=== PATIENT | male | born 1985 | race Caucasian/White ===

== ENCOUNTER → 2021-11-13 11:09 | Outpatient (BNVA) | payer MEDICARE, MEDICAID, SELFPAY | PROVIDERS: Family Provider Nurse Practitioner Family; Visit Provider Nurse Practitioner Family | DX: R05.9 Cough, unspecified (principal) | CPT/HCPCS: 87400; 87635 ==

== ENCOUNTER 2022-01-27 13:52 | Emergency (ER) | payer MEDICARE, MEDICAID, SELFPAY ==
[2022-01-27 13:59] VITALS: BP 138/59; PULSE 102; RESP 19; TEMP 36.7; O2SAT 96; BMI 29.6
--- NOTE | 2022-01-27 14:09 | ED_ITS ---
HPI - General Adult General: Chief complaint: Seizure Stated complaint: SEIZURE Time Seen by Provider: 01/27/22 14:01 History of Present Illness: HPI: [36]yo patient w/ hx of epilespy not on medication presenting from [facility] the ED with breakthrough episode of the seizure which occurred 1 hr ago. The incident was witnessed entirely patient's peers and facility staff. Patient had a general tonic-clonic seizing and patient was reported to be hitting his head against the ground. HDS without any signs of focal neurological deficits. On arrival, the patient is AAOx3, GCS of 15 and answering all questions. The patient denies any associated chest pain, shortness of breath, palpitations, or any focal pain in the arms and legs. Lpatient thinks the current episode is due to significant stress at [facility]. Onset: 1 hr ago Duration: x1 episode lasting for 1 minute Location: [facility] Severity: moderate Associated symptoms: Deny chest pain, dyspnea, nausea, rash, palpitations or vomiting Review of Systems Const: Denies: fever(s) or chills Eyes: Denies: change in vision ENMT: Denies: mouth pain Card: Denies: chest pain or palpitations Resp: Denies: dyspnea or non-productive cough GI: Denies: abdominal pain, nausea, vomiting or diarrhea : Denies: dysuria Musc: Denies: extremity pain Skin/Breast: Denies: rash or new lesions Neuro: Reports: other (+seiuzure); Denies: weakness in extremities Psych: Reports: other (Normal mood) Hiren/Lymph: Denies: easy bruising PFS ED PFSH: Medical History 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 Colon polyps Legg-Perthes disease Right hip Lower respiratory infection Surgical History S/P hip replacement Legg-Perthes Disease Social History Smoking and tobacco status: current every day smoker Second hand smoke exposure: No Smoking risk assessment/counseling performed?: No Alcohol intake: never Desire information about alcohol rehabilitation?: No Counseling given: No Physical Exam Const: COMMON NORMALS: alert HENMT: COMMON NORMALS: atraumatic HEAD & SCALP: atraumatic MOUTH: moist mucous membranes not abnormal Eye: COMMON NORMALS: EOMs intact bilaterally and conjunctivae normal CONJUNCTIVA: Yes conjunctivae normal Neck/C-Spine: COMMON NORMALS: full ROM and supple Resp: COMMON NORMALS: normal respiratory effort and clear to auscultation bilaterally AUSCULTATION: clear to auscultation bilaterally Cardio: COMMON NORMALS: regular rate RATE: regular rate GI: COMMON NORMALS: Soft to palpation and non-tender PALPATION: Yes Soft to palpation Extremity: COMMON NORMALS: full ROM Neuro: SENSORIUM/ORIENTATION: Yes alert MOTOR EXAM: No Abnormal motor strength present and Other motor observations present (no focal motor deficits) OTHER: Mental status? Awake, alert, and oriented to self, year, month, location, and situation.? Following simple axial and appendicular commands.? Has appropriate fund of knowledge, comprehension, and insight.? Able to recall and understands pertinent aspects of medical history and current treatment status.? ? Language? Speech is fluent without word-finding difficulties.? Intact naming, expression, medical records receptionist, and repetition.? ? Cranial nerves? 2,3,4,6: PERRL, EOMI with no nystagmus. 5: Intact sensation to light touch, symmetric? 7: Smile symmetrical, no facial droop.? 8: Hearing grossly intact.? 9,10: Normal palate movement.? 11: Normal strength in trapezius bilaterally 12: Tongue protrudes midline.? ? Motor examination? Normal bulk & tone. Strength as follows (R/L): Delts (5/5), Biceps (5/5), Triceps (5/5), Wrist ext (5/5), hip flexors (5/5), plantarflexors (5/5), dorsiflexors (5/5). Sensation? Light Touch: Grossly intact and equal in upper and lower extremities bilaterally? Romberg: Negative.? Distal joint position sense intact ? Coordination? Atkraj-vu-quux-finger movements intact without dysmetria or past-pointing.? Rapid fingertaps: preserved amplitude without decriment.? No tremor, myoclonus or truncal ataxia.? ? Gait/stance? Steady, normal narrow base gait with appropriate arm swing and turning.? Tandem gait without hesitation or loss of balance. Psych: COMMON NORMALS: speech normal SPEECH: Yes normal speech MOOD & AFFECT: Yes euthymic mood Course Vital Signs: Vital signs: Vital Signs Temperature 98.1 F 01/27/22 13:59 Pulse Rate 93 01/27/22 16:20 Respiratory Rate 23 H 01/27/22 15:54 Blood Pressure 127/54 01/27/22 16:20 Pulse Oximetry 95 01/27/22 16:20 MDM - General Adult Medical Decision Making [36]yo patient w/ known hx of seizure not on meds BIBA after an episode of seizure with unknown duration which occurred 1 hr ago. Back to baseline on arrival, AAOX3 with non-focal neuro exam. HDS. Exam revealed no focal trauma/deformity/bruises.The episode of seizure was witnessed and without any trauma/injury to the head. No immunosuppression hx and without preceding fever. No history of alcohol abuse or suspicion for toxin ingestion. Hx of prior seizure likely breakthrough seizure in the setting of medication change/non- compliance. H No lips/tongue lacerations. No visible bowel/bladder incontinence Airway protected. No drooling. Sats > 95%. Unlikely to be stroke, neurogenic syncope, acute delirium, intracranial tumor/mass, intracranial bleed, SAH/ subdural hematoma/epidural hematoma, meningitis, or intracranial abscess, or from alcohol withdraw al. Workup: CBC, BMP, Magnesium, EKG, CT brain (given fall) ED Interventions: 1g of keppra, PO challenge, serial reassessment EKG: No e/o STEMI. No evidence of Brugada?s sign, delta wave, epsilon wave, significantly prolonged QTc, or malignant arrhythmia. Lab findings: Electrolytes including K and Mg wnl. [4:00pm] On reassessment, patient back to baseline. In the ED, the patient received 1g of keppra in the ED. Hr improved after IVF. No other witnessed episodes of seizure while the patient was observed in the ED. Repeat neuro exam is non-focal. CT head negative for any acute findings. Patient is not medication and will be started on keppra Patient tolerated PO in the ED and was able to ambulate without difficulties. Unlikely to be alternative causes of seizures since the patient has no hx of immunosuppression, no recent fevers, no recent abx/SENIOR ACCOUNTS PAYABLE CLERK shunt, no recent toxic exposure, no unilateral or focal weakness, or trauma. I have given patient follow up with our field nurse case manager to be seen by our outpatient Neurology for management of seizures. Patient aware of a call from our field nurse case manager to schedule for appointment(s) and verbalizes understanding of the importance of following up. Rx: keppra 500mg BID x 14 days Disposition: Discharge. Patient is given instruction for follow-up with PCP and Neurology in the next 24-48 hours. Given seizure precautions including no driving, swimming, or bathing until the patient is fully evaluated by specialists. Lab Data : 01/27/22 14:51 01/27/22 14:[address] 01/27/22 14:07 IMPRESSION: No acute intracranial abnormality. Laboratory Results WBC 5.8 10^3/uL (4.0-10.0) 01/27/22 14:51 RBC 4.23 10^6/uL (4.1-5.3) 01/27/22 14:51 Hgb 12.6 g/dL (11.7-16.6) 01/27/22 14:51 Hct 39.0 % (42.0-52.0) L 01/27/22 14:51 MCV 92.2 fl (80-94) 01/27/22 14:51 MCH 29.8 pg (28.0-34.0) 01/27/22 14:51 MCHC 32.3 g/dL (30.0-36.0) 01/27/22 14:51 RDW 13.8 % (12.1-15.1) 01/27/22 14:51 Plt Count 280 10^3/cmm (130-400) 01/27/22 14:51 MPV 10.7 fL (7.4-10.4) H 01/27/22 14:51 Neut % (Auto) 49.5 % 01/27/22 14:51 Lymph % (Auto) 30.2 % 01/27/22 14:51 [place] % (Auto) 15.3 % 01/27/22 14:51 Eos % (Auto) 3.8 % 01/27/22 14:51 Baso % (Auto) 1.0 % 01/27/22 14:51 Neut # (Auto) 2.88 10^3/uL (1.8-7.7) 01/27/22 14:51 Lymph # (Auto) 1.8 10^3/uL (0.8-4.8) 01/27/22 14:51 [place] # (Auto) 0.9 10^3/uL (0.2-0.9) 01/27/22 14:51 Eos # (Auto) 0.2 10^3/uL (0.0-0.8) 01/27/22 14:51 Baso # (Auto) 0.1 10^3/uL (0.0-0.1) 01/27/22 14:51 Nucleated RBC % (auto) 0 % 01/27/22 14:51 Nucleated RBCs # 0.0 /100WBC 01/27/22 14:51 Sodium 139 mmol/L (136-145) 01/27/22 14:51 Potassium 4.7 mmol/L (3.5-5.1) 01/27/22 14:51 Chloride 102 mmol/L (98-107) 01/27/22 14:51 Carbon Dioxide 27 mmol/L (22-29) 01/27/22 14:51 Anion Gap 14.7 (5-19) 01/27/22 14:51 BUN 13 mg/dL (6-20) 01/27/22 14:51 Creatinine 0.9 mg/dL (0.7-1.2) 01/27/22 14:51 GFR Calculation 96.6 mL/min (90-130) 01/27/22 14:51 Glucose 107 mg/dL (65-115) 01/27/22 14:51 Calculated Osmolality 289 mOsm/kg (285-295) 01/27/22 14:51 Calcium 8.4 mg/dL (8.5-10.5) L 01/27/22 14:51 Total Bilirubin 0.2 mg/dL (0.15-1.2) 01/27/22 14:51 AST 43 U/L (0-40) H 01/27/22 14:51 ALT 91 U/L (0-41) H 01/27/22 14:51 Alkaline Phosphatase 88 IU/L (40-130) 01/27/22 14:51 Total Protein 6.4 g/dL (6.6-8.7) L 01/27/22 14:51 Albumin 4.0 g/dL (3.5-5.2) 01/27/22 14:51 Globulin 2.4 g/dL (1.3-4.6) 01/27/22 14:51 Lipase 21 U/L (13-60) 01/27/22 14:51 Urine Color Straw (Yellow) 01/27/22 14:51 Urine Appearance Clear (CLEAR) 01/27/22 14:51 Urine pH 7 (5-7) 01/27/22 14:51 Ur Specific Stacy 1.015 (1.005-1.030) 01/27/22 14:51 Urine Protein Neg (Negative) 01/27/22 14:51 Urine Glucose (UA) Norm (Normal) 01/27/22 14:51 Urine Ketones Negative (Negative) 01/27/22 14:51 Urine Blood Neg (Negative) 01/27/22 14:51 Urine Nitrate Negative (Negative) 01/27/22 14:51 Urine Bilirubin Neg (Negative) 01/27/22 14:51 Urine Urobilinogen Norm mg/dL (Negative) 01/27/22 14:51 Ur Leukocyte Esterase Negative (Negative) 01/27/22 14:51 Imaging Data Other Imaging: Radiologist's impression: [id number] [address] [address] Scan Report Signed Patient: Yamil Gonzalez Unit #: [id number] : 1985 Age/Sex: 36 / M ADM Date: 01/27/22 Loc: ER Room/Bed: Attending Dr: Ordering Provider/Ordering MD: Henrietta Godfrey MD Date of Service: 01/27/22 Procedure(s): CT head wo con* [id number] Accession Number(s): [id number] Report Number: [id number] PROCEDURE INFORMATION: Exam: CT Head Without Contrast Exam date and time: 01/27/2022 2:31 PM Age: 36 years old Clinical indication: Other: Seizure; Additional info: Fall TECHNIQUE: Imaging protocol: Computed tomography of the head without contrast. Radiation optimization: All CT scans at this facility use at least one of these dose optimization techniques: automated exposure control; mA and/or kV adjustment per patient size (includes targeted exams where dose is matched to clinical indication); or iterative reconstruction. COMPARISON: No relevant prior studies available. RADIATION DOSE METRICS: Total DLP (mGy-cm): 889.42 FINDINGS: Brain: Normal. No hemorrhage. No edema. Unremarkable white matter. No mass effect. Cerebral ventricles: No ventriculomegaly. Paranasal sinuses: Visualized sinuses are unremarkable. No fluid levels. Mastoid air cells: Visualized mastoid air cells are well aerated. Bones/joints: Unremarkable. No acute fracture. Soft tissues: Unremarkable. CT/CT head wo con* [id number] IMPRESSION: No acute intracranial abnormality. ? Dictated By: Garry Ernst DO Signed By: Garry Ernst DO Signed Date/Time: 01/27/22 1513 DD/ 1431 Discharge Plan Discharge Patient Disposition: Home Clinical Impression: Seizure Condition: Stable Prescriptions: New Keppra 500 mg tablet 500 mg PO BID 14 Days Qty: 28 0RF No Action oxycodone-acetaminophen [Percocet] 5-325 mg tablet 1 tab PO Q6H PRN0RF ibuprofen 800 mg tablet 800 mg PO Q8H PRN (Reason: pain) 30 Days Qty: 90 0RF sulfamethoxazole-trimethoprim [Bactrim DS] 800-160 mg tablet 1 tab PO DAILY 14 Days Qty: 28 0RF hydrocortisone [Anti-Itch (HC)] 1 % cream 1 applic TOPICAL TID PRN (Reason: itching) Qty: 14.2 0RF famotidine [Pepcid] 40 mg tablet 40 mg PO DAILY Qty: 30 2RF doxycycline monohydrate 100 mg tablet 100 mg PO BID 10 Days Qty: 20 0RF dexamethasone 6 mg tablet 6 mg PO DAILY 7 Days Qty: 7 0RF Discharge Orders: Discharge ED (Routine); Ordered 01/27/22 Ordered By: Henrietta Godfrey Referrals: Asa Fuentes FNP [Emergency Department] - Discharge Diet: Advance as tolerated Discharge Activity: Increase activity as tolerated Patient Instructions: Epilepsy (ED) Activity Restrictions/Additional Instructions: Our field nurse case manager will have you follow-up with a neurologist in the next few days. You would be expected to have a phone call with our field nurse case manager who will put you on the schedule. You can expect a call from us in the next 2-3 days. If you don't hear from us, call us back in the emergency room at [phone]. Please come back to the emergency room for any more breakthrough episodes of seizure. Come back if any weakness in her arms, drooling, difficulty speaking, any neurological symptoms. Please do not swim bathe or drive a vehicle u nattended. Coding Level of Care Code ED Waste Elimination for Robert Fwd Exam Comprehensive
[2022-01-27] MEDS: acetaminophen 500 mg Tablet PO (14:23)
[2022-01-27] MEDS: sodium chloride 0.9% 1,000 ML 999 ML IV (14:39)
[2022-01-27 15:16] LABS: Basophils # 0.1 10^3/uL (0.0-0.1); Eosinophils # 0.2 10^3/uL (0.0-0.8); Eosinophils % 3.8 %; Hemoglobin 12.6 g/dL (11.7-16.6); Lymphocytes # 1.8 10^3/uL (0.8-4.8); Lymphocytes % 30.2 %; Mean Corpuscular HGB Conc 32.3 g/dL (30.0-36.0); Mean Corpuscular Hemoglobin 29.8 pg (28.0-34.0); Mean Corpuscular Volume 92.2 fl (80-94); Mean Platelet Volume 10.7 fL (7.4-10.4); Monocytes # 0.9 10^3/uL (0.2-0.9); Monocytes % 15.3 %; Neutrophils # 2.88 10^3/uL (1.8-7.7); Neutrophils % 49.5 %; Nucleated Red Blood Cells % 0 %; Platelet Count 280 10^3/cmm (130-400); Red Blood Count 4.23 10^6/uL (4.1-5.3); Red Cell Distribution Width 13.8 % (12.1-15.1); White Blood Count 5.8 10^3/uL (4.0-10.0)
[2022-01-27 15:18] LABS: Add Urine Microscopic? NO; Charge for UA Resulting for Rev
[2022-01-27 15:25] LABS: Bilirubin Urine Neg (Negative); Blood Urine Neg (Negative); Glucose Urine UA Norm (Normal); Ketones Urine Negative (Negative); Leukocyte Esterase Urine Negative (Negative); Nitrate Urine Negative (Negative); Protein Urine Neg (Negative); Specific Gravity, Urine 1.015 (1.005-1.030); Urine Appearance Clear (CLEAR); Urine Color Straw (Yellow); Urobilinogen Urine Norm (Negative); pH Urine 7 (5-7)
[2022-01-27 15:30] LABS: Alanine Aminotransferase 91 U/L (0-41); Alkaline Phosphatase 88 IU/L (40-130); Anion Gap 14.7 (5-19); Aspartate Amino Transferase 43 U/L (0-40); Blood Urea Nitrogen 13 mg/dL (6-20); Calcium 8.4 mg/dL (8.5-10.5); Carbon Dioxide 27 mmol/L (22-29); Chloride 102 mmol/L (98-107); Globulin 2.4 g/dL (1.3-4.6); Glomerular Filtration Rate 96.6 mL/min (90-130); Glucose 107 mg/dL (65-115); Lipase 21 U/L (13-60); Osmolality Calculated 289 mOsm/kg (285-295); Potassium 4.7 mmol/L (3.5-5.1); Sodium 139 mmol/L (136-145); Total Bilirubin 0.2 mg/dL (0.15-1.2); Total Protein 6.4 g/dL (6.6-8.7)
[2022-01-27 15:54] VITALS: BP 138/59; PULSE 96; RESP 23
[2022-01-27 16:20] VITALS: BP 127/54; PULSE 93; O2SAT 95
--- NOTE | 2022-01-29 12:09 | DCPLANNER ---
Addendum entered by Tessy Bailey 02/21/22 20:26: Patient had a follow up appointment scheduled with Dr. Lainez - patient did attend appointment. Addendum entered by eTssy Bailey 02/01/22 08:10: Patient has a follow up appointment scheduled for Saturday, February 05, 2022 at 1:[address] Lainez at neurology. Clinic will call patient with appointment information. Original Note: it disaster recovery manager had message to schedule a followup appointment for patient with neurology. it disaster recovery manager sent patients information to the front office staff at neurology. Patients information will be printed and reviewed. Clinic will call patient with appointment information.
== END 2022-01-27 16:22 | disposition home or self-care (01) ==
PROVIDERS: Emergency Provider Emergency Medicine
DX: R56.9 Unspecified convulsions (principal); F17.200 Nicotine dependence, unspecified, uncomplicated; Z79.899 Other long term (current) drug therapy; Z79.891 Long term (current) use of opiate analgesic
CPT/HCPCS: 70450; 80053; 81003; 83690; 85025; 96361; 96374; 99284; J1953; J7030

== ENCOUNTER → 2022-02-05 13:32 | Outpatient (BNVA) | payer MEDICARE, MEDICAID, SELFPAY | PROVIDERS: Visit Provider Specialist | DX: R56.9 Unspecified convulsions (principal); R51.9 Headache, unspecified; F31.9 Bipolar disorder, unspecified | CPT/HCPCS: 99205 ==

== ENCOUNTER → 2022-02-21 13:31 | Outpatient (BNVA) | payer MEDICARE, MEDICAID, SELFPAY | PROVIDERS: Visit Provider Family Medicine | DX: M91.10 Juvenile osteochondrosis of head of femur [Legg-Calve-Perthes], unspecified leg (principal); Z96.649 Presence of unspecified artificial hip joint; M25.562 Pain in left knee; K21.9 Gastro-esophageal reflux disease without esophagitis; G89.29 Other chronic pain; F32.9 Major depressive disorder, single episode, unspecified | CPT/HCPCS: 80053; 85025; 86803; 87806 ==

== ENCOUNTER → 2023-11-28 08:37 | Outpatient (BNVA) | payer MEDICARE, MEDICAID, SELFPAY | PROVIDERS: PCP Registered Nurse; Visit Provider Registered Nurse | DX: J06.9 Acute upper respiratory infection, unspecified (principal); J01.90 Acute sinusitis, unspecified | CPT/HCPCS: 87400; 87426 ==

== ENCOUNTER → 2023-12-05 16:43 | Outpatient (BNVA) | payer MEDICARE, MEDICAID, SELFPAY | PROVIDERS: PCP Registered Nurse; Visit Provider Registered Nurse | DX: K21.9 Gastro-esophageal reflux disease without esophagitis (principal); R53.83 Other fatigue | CPT/HCPCS: 80053; 84443; 85025 ==

== ENCOUNTER → 2024-04-08 08:56 | Outpatient (BNVA) | payer OTHER, MEDICAID, SELFPAY | PROVIDERS: PCP Registered Nurse; Visit Provider Registered Nurse | DX: E66.01 Morbid (severe) obesity due to excess calories (principal); Z68.43 Body mass index [BMI] 50.0-59.9, adult | CPT/HCPCS: 83036 ==

== ENCOUNTER 2024-08-05 11:55 | Day surgery (SDC) | payer MEDICARE, MEDICAID, SELFPAY ==
[2024-08-05 12:20] VITALS: BP 146/86; PULSE 73; RESP 18; TEMP 36.9; O2SAT 93
[2024-08-05 12:21] VITALS: BMI 52.8
[2024-08-05] MEDS: sodium chloride 0.9% 1,000 ML 30 ML IV (12:43)
--- NOTE | 2024-08-05 12:57 | ANES.PREANE2 ---
Pre-Anesthetic Assessment Height/Weight: Height 1.75 m Weight 162.386 kg Temp Pulse Resp BP Pulse Ox O2 Del Method 98.5 F 73 18 146/86 93 Room Air 08/05/24 12:20 08/05/24 12:20 08/05/24 12:20 08/05/24 12:20 08/05/24 12:20 08/05/24 12:20 Operation Date: 08/05/24 13:15 Proposed Procedures p EGD 59701, 63468, G0105,K92.2, K21.9(Not Applicable) - DO fazal Dodd Colonoscopy(Not Applicable) - Dane Carter DO Familial anesthetic complications: None Was Beta Miley taken within 24 hours: N/A Was Clonidine taken within 24 hours: N/A Last intake: Intake Last Liquid Date 08/05/24 Last Liquid Time 09:00 Last Solid Date 08/03/24 Last Solid Time 23:00 Social No alcohol and No tobacco Exam alert, oriented x 3, clear to auscultation bilaterally and regular rate & rhythm Airway Mallampati: Class III Dentition: other (permanent caps) GI Gastroesophageal Reflux Disease Metabolic Morbid Obesity Anesthetic Plan ASA status: 3 Anesthesia: MAC Risk of > 500 ml blood loss (7ml/kg in children): No Medications/Allergies Home Medications Medication Instructions Recorded Confirmed Last Taken Type ondansetron 8 mg disintegrating 8 mg PO Q8H PRN nausea and 08/03/24 08/05/24 08/04/24 Rx tablet vomiting #20 tabs pantoprazole 40 mg tablet,delayed 40 mg PO BID 6 weeks #84 tabs 08/03/24 08/05/24 08/05/24 Rx release albuterol sulfate 90 mcg/actuation 1 inh inhalation Q4H PRN Shortness 08/04/24 08/05/24 08/05/24 History breath activated powder Of Breath Or Wheezing inhaler,sensor (Proair Digihaler) ibuprofen 800 mg tablet 800 mg PO Q8H PRN Pain 08/04/24 08/05/24 08/05/24 History polyethylene glycol 3350 17 gram 17 g PO DAILY 08/04/24 08/05/24 08/04/24 History oral powder packet (Miralax) Allergies Allergy/AdvReac Type Severity Reaction Status Date / Time phenazopyridine Allergy Intermediate sick Verified 08/05/24 12:19 [From Pyridium] Current Medications Generic Name Dose Route Start Last Admin Trade Name Freq PRN Reason Stop Dose Admin Sodium Chloride 1,000 mls @ 30 mls/hr 08/05/24 12:15 08/05/24 12:43 Sodium Chloride 0.9% IV 08/06/24 12:14 30 mls/hr .Q24H KIP Administration PFSH Anesthesia Medical History Legg-Perthes disease Right hip Lower respiratory infection Colon polyps 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
--- NOTE | 2024-08-05 13:17 | W.PM.OPSUD ---
Surgery/Procedure H&P Update DATE OF PROCEDURE: August 05, 2024 DATE H&P PERFORMED: 08/03/24 H&P UPDATE INFORMATION: I have reviewed H&P completed within last 30 days, I have examined patient prior to procedure and No changes to prior documentation PLANNED PROCEDURE: Operation Date: 08/05/24 13:15 Proposed Procedures p EGD 38445, 55928, G0105,K92.2, K21.9(Not Applicable) - DO fazal Dodd Colonoscopy(Not Applicable) - Dane Carter DO
[2024-08-05 13:44] VITALS: BP 94/53; PULSE 81; RESP 16; TEMP 36.4; O2SAT 93
[2024-08-05 13:49] VITALS: BP 93/44; PULSE 78; RESP 18; O2SAT 93
[2024-08-05 13:59] VITALS: BP 113/65; PULSE 74; RESP 18; O2SAT 93
[2024-08-05 14:18] VITALS: RESP 18; O2SAT 90
--- NOTE | 2024-08-05 14:30 | ANE.PACU2 ---
Inpatient post-anesthesia follow up: Airway intact: Yes Vital signs: Temperature 97.5 F Pulse Rate 74 Respiratory Rate 18 Blood Pressure 113/65 Pulse Oximetry 90 Oxygen Delivery Me thod Room Air Oxygen Flow Rate 4 Fraction of Inspir ed Oxygen Hydration adequate: Yes Nausea and vomiting: No Pain level: 1 Mental status: Baseline
== END 2024-08-05 14:32 | disposition home or self-care (01) ==
PROVIDERS: PCP Registered Nurse; Visit Provider Surgery
PROC: 0DJ08ZZ Inspection of Upper Intestinal Tract, Via Natural or Artificial Opening Endoscopic (ICD-10-PCS; CPT 43235; principal; 2024-08-05 13:15)
PROC: 0DJD8ZZ Inspection of Lower Intestinal Tract, Via Natural or Artificial Opening Endoscopic (ICD-10-PCS; CPT 45378; 2024-08-05 13:15)
DX: K29.50 Unspecified chronic gastritis without bleeding (principal); K21.9 Gastro-esophageal reflux disease without esophagitis; K21.00 Gastro-esophageal reflux disease with esophagitis, without bleeding; K57.30 Diverticulosis of large intestine without perforation or abscess without bleeding; K64.8 Other hemorrhoids; E66.01 Morbid (severe) obesity due to excess calories; Z68.43 Body mass index [BMI] 50.0-59.9, adult; Z87.891 Personal history of nicotine dependence
CPT/HCPCS: 43239; 88305; 88342; G0121; J2250; J2704; J7030

== ENCOUNTER → 2024-08-27 10:15 | Outpatient (BNVA) | payer MEDICARE, MEDICAID, SELFPAY | PROVIDERS: PCP Registered Nurse; Visit Provider Surgery | DX: Z09 Encounter for follow-up examination after completed treatment for conditions other than malignant neoplasm (principal); K21.9 Gastro-esophageal reflux disease without esophagitis; K64.8 Other hemorrhoids | CPT/HCPCS: 99214 ==